=== PATIENT | male | born 1980 | race Caucasian/White ===

== ENCOUNTER 2016-09-05 20:28 | Emergency (ER) | payer OTHER ==
[2016-09-05 21:20] VITALS: BP 174/83; PULSE 90; RESP 18; TEMP 98
--- NOTE | 2016-09-05 21:33 | ED ---
General Adult HPI - General Chief complaint: Skin/Abscess/Foreign Body Stated complaint: rash Time Seen by Provider: 09/05/16 21:21 Source: patient, RN notes reviewed Mode of arrival: ambulatory Limitations: no limitations - History of Present Illness Initial comments: Patient 36-year-old male who presents emergency room today with chief complaint of a rash and itching over the last week. He does admit that she try Benadryl at home with little relief the symptoms. States it seems to spread. Sister on the right side. He states he's had some irritation to his eyes bilaterally today. States the his hands and arms being itchy. Denies any contacts, soaps or laundry detergents. Denies ever having similar symptoms in the past. does offer that somebody at her work had scabies in the last month. Patient denies any recent fever, chills, shortness of breath, chest pain, back pain, abdominal pain, nausea or vomiting, numbness or tingling, dysuria or hematuria, constipation or diarrhea, headaches or visual changes, or any other complaints. - Related Data Previous Rx's Medication Instructions Recorded Famotidine [Pepcid] 20 mg PO BID #20 tablet 09/05/16 Permethrin 5% Cream [Elimite] 1 applic TOPICAL ONCE #1 tube 09/05/16 methylPREDNISolone Dose Pack 4 mg PO DIRECTED #21 package 09/05/16 [Medrol Dose Pack] Allergies Allergy/AdvReac Type Severity Reaction Status Date / Time morphine Allergy Unknown Verified 09/05/16 21:15 Review of Systems ROS Statement: Those systems with pertinent positive or pertinent negative responses have been documented in the HPI. ROS Other: All systems not noted in ROS Statement are negative. Past Medical History Past Medical History: No Reported History History of Any Multi-Drug Resistant Organisms: None Reported Additional Past Surgical History / Comment(s): rhinoplasty, anal fissure Past Psychological History: No Psychological Hx Reported Smoking Status: Current every day smoker Past Alcohol Use History: Heavy Past Drug Use History: None Reported General Exam - General Exam Comments Initial Comments: General: The patient is awake and alert, in no distress, and does not appear acutely ill. Eye: Pupils are equal, round and reactive to light, extra-ocular movements are intact. No nystagmus. There is normal conjunctiva bilaterally. No signs of icterus. Ears, nose, mouth and throat: There are moist mucous membranes and no oral lesions. Neck: The neck is supple, there is no tenderness or JVD. Cardiovascular: There is a regular rate and rhythm. No murmur, rub or gallop is appreciated. Respiratory: Lungs are clear to auscultation, respirations are non-labored, breath sounds are equal. No wheezes, stridor, rales, or rhonchi. Musculoskeletal: Normal ROM, no tenderness. Strength 5/5. Sensation intact. Pulses equal bilaterally 2+. Neurological: A&O x 3. CN II-XII intact, There are no obvious motor or sensory deficits. Coordination appears grossly intact. Speech is normal. Skin: Papular type rash to the upper extremities. Mild redness around his eyes and cheeks area. Psychiatric: Cooperative, appropriate mood & affect, normal judgment. Limitations: no limitations Course Vital Signs 09/05/16 21:15 Temperature 98.0 F Pulse Rate 90 Respiratory 18 Rate Blood Pressure 174/83 O2 Sat by Pulse 96 Oximetry Medical Decision Making - Medical Decision Making Was discussed with patient about the possibility of scabies. Will be given a medication of permethrin cream to use. Also advised also ALLERGIC reaction. Advised continue Benadryl also use Pepcid and was given a prescription for steroids to use if symptoms aren't improved after permethrin treatment. Patient advised follow-up with his family doctor return if any symptoms increase or worsen or for any other concerns. Disposition Clinical Impression: Rash Disposition: HOME SELF-CARE Condition: Good Instructions: Urticaria (ED), Scabies (ED) Additional Instructions: Please use medication as discussed. Please follow-up with family doctor in the next 2 days of symptoms have not improved. Please return to emergency room if the symptoms increase or worsen or for any other concerns. Prescriptions: Famotidine [Pepcid] 20 mg PO BID #20 tablet Permethrin 5% Cream [Elimite] 1 applic TOPICAL ONCE #1 tube methylPREDNISolone Dose Pack [Medrol Dose Pack] 4 mg PO DIRECTED #21 package Referrals: Nonstaff,Physician [Primary Care Provider] - 1-2 days Ty Hudson MD [REFERRING] - 1-2 days Anne Marie Lopez MD [STAFF PHYSICIAN] - 1-2 days Time of Disposition: 21:32
== END 2016-09-05 21:51 | disposition home or self-care (01) ==
LOC: EC 20:28
DX: R21 Rash and other nonspecific skin eruption (principal); Z88.5 Allergy status to narcotic agent; F17.200 Nicotine dependence, unspecified, uncomplicated
CPT/HCPCS: 99282

== ENCOUNTER 2016-10-10 16:11 | Emergency (ER) | payer OTHER ==
[2016-10-10] MEDS ORDERED: LORazepam 2 MG/ML SYRINGE IM STA (16:58)
[2016-10-10] MEDS ORDERED: diphenhydrAMINE 50 MG/ML 1 ML VIAL IM STA (16:58)
[2016-10-10] MEDS ORDERED: HALOPERIDOL LACTATE 5 MG/ML 1 ML VIAL IM PRN (16:58)
--- NOTE | 2016-10-10 17:13 | ED ---
Psych HPI <Alfa Colindres - Last Filed: 10/11/16 01:16> <Raul Aguirre - Last Filed: 10/11/16 02:33> - General Chief Complaint: Psychiatric Symptoms Stated Complaint: ETOH Time Seen by Provider: 10/10/16 16:33 - History of Present Illness Initial Comments: This is a 36-year-old male who is X who presents emergency department for suicidal ideation. The patient was drinking today [facility] because [facility] suffers from post traumatic stress disorder. He was suicidal to the textiles sales representative at the [facility] and thus the police were called. Patient was petition and brought in for suicidal ideation. The patient was very confrontational upon arrival. He was telling us that he was just going to elope. His blood alcohol content was 0.16 in the field. The patient had be immediately restrained upon arrival because he was attempting to elope and was combative with staff and police officers at bedside. (Alfa Colindres) - Related Data Previous Rx's Medication Instructions Recorded Famotidine [Pepcid] 20 mg PO BID #20 tablet 09/05/16 Allergies Allergy/AdvReac Type Severity Reaction Status Date / Time morphine Allergy Unknown Verified 09/05/16 21:15 Review of Systems ROS Other: All systems not noted in ROS Statement are negative. <Alfa Colindres - Last Filed: 10/11/16 01:16> ROS Other: All systems not noted in ROS Statement are negative. <Raul Aguirre - Last Filed: 10/11/16 02:33> ROS Statement: Those systems with pertinent positive or pertinent negative responses have been documented in the HPI. Past Medical History Past Medical History: No Reported History History of Any Multi-Drug Resistant Organisms: None Reported Additional Past Surgical History / Comment(s): rhinoplasty, anal fissure Past Psychological History: No Psychological Hx Reported Smoking Status: Current every day smoker Past Alcohol Use History: Heavy Past Drug Use History: None Reported <Alfa Colindres - Last Filed: 10/11/16 01:16> General Exam <Alfa Colindres - Last Filed: 10/11/16 01:16> <Raul Aguirre - Last Filed: 10/11/16 02:33> - General Exam Comments Initial Comments: Constitutional: Awake alert Appears comfortable Head: Normocephalic atraumatic Eyes: no conjunctival injection No scleral icterus EOMI Neck: No JVD Supple Heart: Regular rate rhythm normal S1-S2 no murmurs Lungs: Clear to auscultation bilaterally No wheezing No rales Abdomen: Soft nondistended nontender Extremities: Non edematous DP pulses intact Radial pulses intact Neuro: A&Ox3 No focal neurologic deficits Psych: Toxic aided and angry with suicidal ideation (Alfa Colindres) Course <Alfa Colindres - Last Filed: 10/11/16 01:16> <Raul Aguirre - Last Filed: 10/11/16 02:33> Vital Signs 10/10/16 18:31 Temperature 98.1 F Pulse Rate 85 Respiratory 16 Rate Blood Pressure 119/78 O2 Sat by Pulse 96 Oximetry - Reevaluation(s) Reevaluation #1: 10/11/16 01:16 Patient is resting comfortably. EPS is down to see the patient. Patient signed out to Dr. Kaur. (Alfa Colindres) Procedures - Restraint - Face to Face Restraint Occurrence 1 Patient's Immediate Situation: Endangers others' safety, Endangers staff safety , Violent behavior Patient's Reaction to the Intervention: Hostile, Belligerent, Restless Patient's Medical & Behavioral Condition: Awake, Agitated, Depressed, Suicidal thoughts Need to Continue or Terminate Restraint or Seclusion: Continue Face to Face Eval of Restraint Date: 10/10/16 Face to Face Eval of Restraint Time: 17:13 <Alfa Colindres - Last Filed: 10/11/16 01:16> Medical Decision Making - Lab Data Result diagrams: 10/10/16 19:10 10/10/16 19:10 <Alfa Colindres - Last Filed: 10/11/16 01:16> - Lab Data Result diagrams: 10/10/16 19:10 10/10/16 19:10 <Raul Aguirre - Last Filed: 10/11/16 02:33> - Lab Data Lab Results 10/10/16 10/10/16 10/11/16 Range/Units 19:10 19:10 01:20 WBC 7.0 (3.8-10.6) k/uL RBC 4.92 (4.30-5.90) m/uL Hgb 15.1 (13.0-17.5) gm/dL Hct 44.6 (39.0-53.0) % MCV 90.7 (80.0-100.0) fL MCH 30.6 (25.0-35.0) pg MCHC 33.8 (31.0-37.0) g/dL RDW 13.5 (11.5-15.5) % Plt Count 205 (150-450) k/uL Neutrophils % 54 % Lymphocytes % 37 % Monocytes % 4 % Eosinophils % 3 % Basophils % 1 % Neutrophils # 3.8 (1.3-7.7) k/uL Lymphocytes # 2.6 (1.0-4.8) k/uL Monocytes # 0.3 (0-1.0) k/uL Eosinophils # 0.2 (0-0.7) k/uL Basophils # 0.1 (0-0.2) k/uL Sodium 143 (137-145) mmol/L Potassium 4.4 (3.5-5.1) mmol/L Chloride 107 (98-107) mmol/L Carbon Dioxide 22 (22-30) mmol/L Anion Gap 14 mmol/L BUN 10 (9-20) mg/dL Creatinine 0.97 (0.66-1.25) mg/dL Est GFR (MDRD) Af Amer >60 (>60 ml/min/1.73 sqM) Est GFR (MDRD) Non-Af >60 (>60 ml/min/1.73 sqM) Glucose 100 H (74-99) mg/dL Calcium 9.2 (8.4-10.2) mg/dL Total Bilirubin 0.5 (0.2-1.3) mg/dL AST 30 (17-59) U/L ALT 34 (21-72) U/L Alkaline Phosphatase 67 (38-126) U/L Total Protein 7.6 (6.3-8.2) g/dL Albumin 4.3 (3.5-5.0) g/dL Salicylates <1.0 mg/dL Urine Opiates Screen Not Detected (NotDetected) Ur Oxycodone Screen Not Detected (NotDetected) Urine Methadone Screen Not Detected (NotDetected) Ur Propoxyphene Screen Not Detected (NotDetected) Acetaminophen <10.0 ug/mL Ur Barbiturates Screen Not Detected (NotDetected) U Tricyclic Antidepress Not Detected (NotDetected) Ur Phencyclidine Scrn Not Detected (NotDetected) Ur Amphetamines Screen Not Detected (NotDetected) U Methamphetamines Scrn Not Detected (NotDetected) U Benzodiazepines Scrn Not Detected (NotDetected) Urine Cocaine Screen Not Detected (NotDetected) U Marijuana (THC) Screen Not Detected (NotDetected) Serum Alcohol 170 mg/dL Disposition <Alfa Colindres - Last Filed: 10/11/16 01:16> <Raul Aguirre - Last Filed: 10/11/16 02:33> Clinical Impression: Alcohol intoxication Disposition: HOME SELF-CARE Condition: Fair Instructions: Abuse of Alcohol (ED)
[2016-10-10 19:22] LABS: Basophils # (A) 0.1 k/uL (0-0.2); Basophils % (A) 1 %; CH 31.4; CHCM 34.8; Eosinophils # (A) 0.2 k/uL (0-0.7); Eosinophils % (A) 3 %; HCT 44.6 % (39.0-53.0); HDW 2.55; HGB 15.1 gm/dL (13.0-17.5); Luc # (Auto) 0.13; Luc % (Auto) 2; Lymphocytes # (A) 2.6 k/uL (1.0-4.8); Lymphocytes % (A) 37 %; MCH 30.6 pg (25.0-35.0); MCHC 33.8 g/dL (31.0-37.0); MCV 90.7 fL (80.0-100.0); Mean Platelet Volume 8.2; Monocytes # (A) 0.3 k/uL (0-1.0); Monocytes % (A) 4 %; Neutrophils # (A) 3.8 k/uL (1.3-7.7); Neutrophils % (A) 54 %; RBC 4.92 m/uL (4.30-5.90); RDW 13.5 % (11.5-15.5); WBC (Perox) 6.66
[2016-10-10 19:33] LABS: ALT 34 U/L (21-72); AST 30 U/L (17-59); Acetaminophen <10.0 ug/mL; Alkaline Phosphatase 67 U/L (38-126); Anion Gap 14 mmol/L; Blood Urea Nitrogen 10 mg/dL (9-20); Calcium 9.2 mg/dL (8.4-10.2); Carbon Dioxide 22 mmol/L (22-30); Chloride 107 mmol/L (98-107); Glucose 100 mg/dL (74-99); Non-African American GFR(MDRD) >60 (>60 ml/min/1.73 sqM); Potassium 4.4 mmol/L (3.5-5.1); Salicylate <1.0 mg/dL; Sodium 143 mmol/L (137-145); Total Bilirubin 0.5 mg/dL (0.2-1.3); Total Protein 7.6 g/dL (6.3-8.2)
[2016-10-10 19:38] LABS: Alcohol 170 mg/dL
[2016-10-11 02:49] VITALS: BP 118/63; PULSE 99; RESP 18; TEMP 98.9
== END 2016-10-11 02:48 | disposition home or self-care (01) ==
LOC: EC 16:11
DX: F10.129 Alcohol abuse with intoxication, unspecified (principal); Y90.6 Blood alcohol level of 120-199 mg/100 ml; F43.10 Post-traumatic stress disorder, unspecified; R45.851 Suicidal ideations; Z88.5 Allergy status to narcotic agent; F17.200 Nicotine dependence, unspecified, uncomplicated
CPT/HCPCS: 82075; 36415; 80053; 85025; 80306; 83520 ×2; 80320; 96372; 99284; J2060; J1200; J1630

== ENCOUNTER 2016-11-15 21:59 | Emergency (ER) | payer OTHER ==
[2016-11-15 23:44] LABS: Basophils # (A) 0.1 k/uL (0-0.2); Basophils % (A) 1 %; CH 30.8; CHCM 34.1; Eosinophils # (A) 0.2 k/uL (0-0.7); Eosinophils % (A) 2 %; HCT 44.9 % (39.0-53.0); HDW 2.54; HGB 15.2 gm/dL (13.0-17.5); Luc # (Auto) 0.18; Luc % (Auto) 2; Lymphocytes # (A) 3.5 k/uL (1.0-4.8); Lymphocytes % (A) 39 %; MCH 30.8 pg (25.0-35.0); MCHC 33.9 g/dL (31.0-37.0); MCV 90.8 fL (80.0-100.0); Mean Platelet Volume 7.9; Monocytes # (A) 0.3 k/uL (0-1.0); Monocytes % (A) 4 %; Neutrophils # (A) 4.6 k/uL (1.3-7.7); Neutrophils % (A) 52 %; RBC 4.94 m/uL (4.30-5.90); RDW 13.1 % (11.5-15.5); WBC 8.8 k/uL (3.8-10.6); WBC (Perox) 8.97
[2016-11-15 23:56] LABS: Anion Gap 15 mmol/L; Blood Urea Nitrogen 12 mg/dL (9-20); Calcium 9.2 mg/dL (8.4-10.2); Carbon Dioxide 21 mmol/L (22-30); Chloride 109 mmol/L (98-107); Glucose 112 mg/dL (74-99); Non-African American GFR(MDRD) >60 (>60 ml/min/1.73 sqM); Potassium 4.2 mmol/L (3.5-5.1); Sodium 145 mmol/L (137-145)
[2016-11-16 06:21] VITALS: BP 115/58; PULSE 90; RESP 16; TEMP 97.8
--- NOTE | 2016-11-16 06:57 | ED ---
Psych HPI - General Chief Complaint: Psychiatric Symptoms Stated Complaint: petition Time Seen by Provider: 11/15/16 22:10 Source: police Mode of arrival: ambulatory - History of Present Illness Initial Comments: This patient is a 36-year-old man who states that he has history of PTSD who presents after police were called because she had engaged in some cutting behavior to his forearms. The patient states that he had been drinking and then started feeling depressed and then he used a razor to cut his bilateral forearms. The patient states that he was having some suicidal thoughts but states he didn't believe he was cutting deep enough to harm himself. Complaint: suicidal ideation, feels depressed -: hour(s) Associated Psychiatric Symptoms: depression, suicidal ideation Worsens With: alcohol Context: recent alcohol abuse Associated Symptoms: denies other symptoms - Related Data Home Medications Medication Instructions Recorded Confirmed No Known Home Medications [No 11/15/16 11/15/16 Known Home Medications] Allergies Allergy/AdvReac Type Severity Reaction Status Date / Time morphine Allergy Unknown Verified 11/15/16 23:06 Review of Systems ROS Statement: Those systems with pertinent positive or pertinent negative responses have been documented in the HPI. ROS Other: All systems not noted in ROS Statement are negative. Constitutional: Denies: weakness Respiratory: Denies: cough, dyspnea Cardiovascular: Denies: chest pain, syncope Gastrointestinal: Denies: abdominal pain Musculoskeletal: Denies: back pain Skin: Denies: rash Hematological/Lymphatic: Denies: easy bleeding Past Medical History Past Medical History: No Reported History History of Any Multi-Drug Resistant Organisms: None Reported Additional Past Surgical History / Comment(s): rhinoplasty, anal fissure Past Psychological History: No Psychological Hx Reported Smoking Status: Current every day smoker Past Alcohol Use History: Heavy Past Drug Use History: None Reported General Exam Limitations: no limitations General appearance: alert, in no apparent distress Head exam: Present: atraumatic, normocephalic Eye exam: Present: normal appearance. Absent: scleral icterus, conjunctival injection Neck exam: Present: normal inspection, full ROM Respiratory exam: Present: normal lung sounds bilaterally. Absent: respiratory distress, wheezes, rales, rhonchi, stridor Cardiovascular Exam: Present: regular rate, normal rhythm, normal heart sounds. Absent: systolic murmur, diastolic murmur, rubs, gallop GI/Abdominal exam: Present: soft. Absent: distended, tenderness, guarding, rebound, mass Extremities exam: Present: normal inspection, normal capillary refill. Absent: pedal edema, calf tenderness Back exam: Present: normal inspection. Absent: CVA tenderness (R), CVA tenderness (L) Skin exam: Present: warm, dry, normal color Course Vital Signs 11/15/16 11/16/16 22:03 06:20 Temperature 98.0 F 97.8 F Pulse Rate 106 H 90 Respiratory 18 16 Rate Blood Pressure 117/76 115/58 O2 Sat by Pulse 97 96 Oximetry Procedures - Laceration Laceration #1 Consent Obtained: verbal consent Indication: laceration Site: upper extremity Size (cm): 3 Description: linear, clean Depth: simple, single layer Amount (mls): 3 Type of Sutures: other (Steri-Strips) Technique: simple, interrupted Patient Tolerated Procedure: well, no complications Additional Comments: Patient states [facility] Medical Decision Making - Medical Decision Making The patient was reevaluated by behavioral health and by myself following sobriety. The patient is daniel for safety. He is expressing remorse over reactions of last night. He does plan on [facility] regarding [facility] and states she will attempt to refrain from alcohol. He'll return if his mood worsens. - Lab Data Result diagrams: 11/15/16 23:35 11/15/16 23:35 Lab Results 11/15/16 11/15/16 11/15/16 Range/Units 22:32 23:35 23:35 WBC 8.8 (3.8-10.6) k/uL RBC 4.94 (4.30-5.90) m/uL Hgb 15.2 (13.0-17.5) gm/dL Hct 44.9 (39.0-53.0) % MCV 90.8 (80.0-100.0) fL MCH 30.8 (25.0-35.0) pg MCHC 33.9 (31.0-37.0) g/dL RDW 13.1 (11.5-15.5) % Plt Count 216 (150-450) k/uL Neutrophils % 52 % Lymphocytes % 39 % Monocytes % 4 % Eosinophils % 2 % Basophils % 1 % Neutrophils # 4.6 (1.3-7.7) k/uL Lymphocytes # 3.5 (1.0-4.8) k/uL Monocytes # 0.3 (0-1.0) k/uL Eosinophils # 0.2 (0-0.7) k/uL Basophils # 0.1 (0-0.2) k/uL Sodium 145 (137-145) mmol/L Potassium 4.2 (3.5-5.1) mmol/L Chloride 109 H (98-107) mmol/L Carbon Dioxide 21 L (22-30) mmol/L Anion Gap 15 mmol/L BUN 12 (9-20) mg/dL Creatinine 0.90 (0.66-1.25) mg/dL Est GFR (MDRD) Af Amer >60 (>60 ml/min/1.73 sqM) Est GFR (MDRD) Non-Af >60 (>60 ml/min/1.73 sqM) Glucose 112 H (74-99) mg/dL Calcium 9.2 (8.4-10.2) mg/dL Urine Opiates Screen Not Detected (NotDetected) Ur Oxycodone Screen Not Detected (NotDetected) Urine Methadone Screen Not Detected (NotDetected) Ur Propoxyphene Screen Not Detected (NotDetected) Ur Barbiturates Screen Not Detected (NotDetected) U Tricyclic Antidepress Not Detected (NotDetected) Ur Phencyclidine Scrn Not Detected (NotDetected) Ur Amphetamines Screen Detected H (NotDetected) U Methamphetamines Scrn Not Detected (NotDetected) U Benzodiazepines Scrn Not Detected (NotDetected) Urine Cocaine Screen Not Detected (NotDetected) U Marijuana (THC) Screen Not Detected (NotDetected) Disposition Clinical Impression: Alcohol intoxication, Laceration Disposition: HOME SELF-CARE Condition: Fair Instructions: Alcohol Intoxication (ED), Laceration (ED) Referrals: None,Stated [Primary Care Provider] - 1-2 days
== END 2016-11-16 07:05 | disposition home or self-care (01) ==
LOC: EC 21:59
DX: S51.812A Laceration without foreign body of left forearm, initial encounter (principal); S51.811A Laceration without foreign body of right forearm, initial encounter; F10.129 Alcohol abuse with intoxication, unspecified; F17.200 Nicotine dependence, unspecified, uncomplicated; Z88.5 Allergy status to narcotic agent; W45.8XXA Other foreign body or object entering through skin, initial encounter
CPT/HCPCS: 36415; 80048; 80306; 82075; 85025; 99285